=== PATIENT | female | born 1990 | race Two or more races ===

== ENCOUNTER 2018-02-11 09:26 | Emergency (ER) | payer OTHER ==
[2018-02-11 09:31] VITALS: BP 121/74; PULSE 82; TEMP 98.7; BMI 22.2
--- NOTE | 2018-02-11 09:50 | PDOC ---
History of Present Illness - General Chief Complaint: Toothache Stated Complaint: SWOLLEN FACE/FEVER Time Seen by Provider: 02/11/18 09:40 History Source: Patient Exam Limitations: No Limitations - History of Present Illness Initial Comments: 02/11/18 09:50 27 yr female with 3 days right lower jaw pain and sore throat, dental pain. pt has no fever no diff swallowing. no PMHX Severity: mild Past History - Past Medical History Allergies/Adverse Reactions: Allergies Allergy/AdvReac Type Severity Reaction Status Date / Time No Known Allergies Allergy Verified 02/11/18 09:31 Home Medications: Ambulatory Orders Amoxicillin - [Amoxicillin 875mg Tablet -] 875 mg PO BID #14 tab 02/11/18 Ibuprofen 800 mg PO TID PRN #21 tablet 02/11/18 COPD: No - Suicide/Smoking/Psychosocial Hx Smoking History: Never smoked Review of Systems - Review of Systems Able to Perform ROS?: Yes Is the patient limited Bengali proficient: No Constitutional: No: Symptoms Reported HEENTM: Yes: Symptoms Reported *Physical Exam - Vital Signs Last Vital Signs Temp Pulse Resp BP Pulse Ox 98.7 F 82 18 121/74 99 02/11/18 09:29 02/11/18 09:29 02/11/18 09:29 02/11/18 09:29 02/11/18 09:29 - Physical Exam General Appearance: Yes: Nourished, Appropriately Dressed HEENT: positive: EOMI, JAMILA, Pharyngeal Erythema, Other (right lower gum line with possible impacted molar , no abscess ) Neck: positive: Supple Respiratory/Chest: positive: Lungs Clear, Normal Breath Sounds Extremity: positive: Normal Capillary Refill, Normal Inspection, Normal Range of Motion Integumentary: positive: Normal Color, Dry, Warm Neurologic: positive: Fully Oriented, Alert, Normal Mood/Affect, Normal Response , Motor Strength 5/5 Medical Decision Making - Medical Decision Making 02/11/18 09:55 cc: possible impacted molar right lower jaw no abscess, TTP will place on amoxicillin and ibuprofen pt has dentist apt tomorrow *DC/Admit/Observation/Transfer Diagnosis at time of Disposition: Toothache - Discharge Dispostion Disposition: HOME Condition at time of disposition: Fair - Prescriptions Prescriptions: Amoxicillin - [Amoxicillin 875mg Tablet -] 875 mg PO BID #14 tab Ibuprofen 800 mg PO TID PRN #21 tablet PRN Reason: Pain - Referrals - Patient Instructions Printed Discharge Instructions: DI for Dental Pain Additional Instructions: follow with the dentist tomorrow as planned gargle with warm salt water 4-5 times a day take the Amoxicillin as directed take ibuprofen 800mg every 8hrs for pain you can also take tylenol 650mg every 4-6hrs for pain or fever room temperature fluids and foods - Post Discharge Activity
== END 2018-02-11 09:56 | disposition home or self-care (01) ==
LOC: JERFT 09:26
DX: K08.89 Other specified disorders of teeth and supporting structures (principal)
CPT/HCPCS: 99281-25

== ENCOUNTER 2020-05-22 16:47 | Inpatient (IN) | payer OTHER ==
[2020-05-22 17:09] VITALS: BMI 24.2
[2020-05-22] MEDS ORDERED: SODIUM CHLORIDE 0.9% 500 ML INFUS.BAG IV ONE (17:55)
[2020-05-22] MEDS ORDERED: ACETAMINOPHEN 1000 MG/100 ML BAG IVPB ONE (17:56)
[2020-05-22] MEDS ORDERED: ACETAMINOPHEN INJECTION 100 ML IVPB ONE ×2 (18:18→20:44)
[2020-05-22 19:18] LABS: BASO % 0.1 % (0-2.0); HEMATOCRIT 37.1 % (32.4-45.2); HEMOGLOBIN 12.5 GM/dL (10.7-15.3); LYMPH % 5.7 % (8-40); MCH 29.3 pg (25.7-33.7); MCHC 33.8 g/dl (32.0-36.0); MEAN CELL VOLUME 86.8 fl (80-96); MEAN PLT VOLUME 9.6 fl (7.5-11.1); MONO % 2.9 % (3.8-10.2); NEUT % 91.3 % (42.8-82.8); PLATELET COUNT 185 K/MM3 (134-434); RBC 4.27 M/mm3 (3.60-5.2); RDW 12.8 % (11.6-15.6); WHITE BLOOD COUNT 12.2 K/mm3 (4.0-10.0)
[2020-05-22] MEDS ORDERED: ONDANSETRON 4 MG/2 ML VIAL IVPUSH ONE (19:26)
[2020-05-22 19:41] LABS: CALCIUM 8.6 mg/dL (8.5-10.1)
[2020-05-22 19:42] LABS: ALBUMIN 3.6 g/dl (3.4-5.0); BLOOD UREA NITROGEN 10.1 mg/dL (7-18)
[2020-05-22 19:45] LABS: CREATININE 0.6 mg/dL (0.55-1.3)
[2020-05-22 19:47] LABS: BILIRUBIN,TOTAL 0.4 mg/dL (0.2-1); TOT PROT 7.5 g/dl (6.4-8.2)
[2020-05-22] MEDS ORDERED: POTASSIUM CHLORIDE TABS 20 MEQ TABLET.ER (FP) PO ONE ×2 (19:47→20:43)
[2020-05-22] MEDS ORDERED: FAMOTIDINE 20 MG/50 ML IVPB 20 MG/50 ML MG IVPB ONE (19:58)
[2020-05-22] MEDS ORDERED: LACTATED RINGERS SOLUTION 1000 ML INFUS.BAG IV ONE (19:59)
[2020-05-22 20:11] LABS: PH,URINE 6.5 (5.0-8.0); URINE APPEARANCE CLOUDY; URINE BILIRUBIN NEGATIVE (NEGATIVE); URINE COLOR YELLOW; URINE GLUCOSE (UA) NEGATIVE (NEGATIVE); URINE KETONE NEGATIVE (NEGATIVE); URINE LEUK ESTERASE NEGATIVE (NEGATIVE); URINE NITRITE NEGATIVE (NEGATIVE); URINE PROTEIN NEGATIVE (NEGATIVE); URINE UROBILINOGEN 0.2 mg/dL (0.2-1.0)
[2020-05-22] MEDS ORDERED: FAMOTIDINE 20 MG TABLET ONE (20:43)
[2020-05-22] MEDS ORDERED: ONDANSETRON 4 MG/2 ML VIAL ONE (20:44)
[2020-05-22 21:28] LABS: ANISOCYTOSIS 0; MACROCYTOSIS 0; PLATELET ESTIMATE NORMAL
[2020-05-22] MEDS ORDERED: PIPERACILLIN/TAZOB 4.5 GM 4.5 GM in DEXTROSE 5%-WATER 100 ML IVPB ONE (22:43)
[2020-05-22] MEDS ORDERED: PIPERACILLIN/TAZOB 4.5 GM 4.5 GM/100 ML BAG IVPB ONE (22:51)
[2020-05-23] MEDS ORDERED: ACETAMINOPHEN 325 MG TABLET (FP) PO PRN (00:40)
[2020-05-23] MEDS: SODIUM CHLORIDE 1,000 ML with POTASSIUM CHLORIDE 20 MEQ IV SCH (01:17)
[2020-05-23] MEDS ORDERED: ACETAMINOPHEN 325 MG TABLET (FP) ONE (06:28)
[2020-05-23 07:07] LABS: BASO % 0.2 % (0-2.0); HEMATOCRIT 35.3 % (32.4-45.2); HEMOGLOBIN 12.1 GM/dL (10.7-15.3); LYMPH % 8.9 % (8-40); MCH 29.9 pg (25.7-33.7); MCHC 34.1 g/dl (32.0-36.0); MEAN CELL VOLUME 87.7 fl (80-96); MEAN PLT VOLUME 9.5 fl (7.5-11.1); MONO % 3.3 % (3.8-10.2); NEUT % 87.6 % (42.8-82.8); PLATELET COUNT 168 K/MM3 (134-434); RBC 4.03 M/mm3 (3.60-5.2); RDW 13.4 % (11.6-15.6); WHITE BLOOD COUNT 8.3 K/mm3 (4.0-10.0)
[2020-05-23 07:25] LABS: ALBUMIN 3.3 g/dl (3.4-5.0); BLOOD UREA NITROGEN 8.1 mg/dL (7-18)
[2020-05-23 07:27] LABS: CREATININE 0.6 mg/dL (0.55-1.3)
[2020-05-23 07:28] LABS: BILIRUBIN,TOTAL 0.4 mg/dL (0.2-1)
[2020-05-23 07:29] LABS: TOT PROT 6.9 g/dl (6.4-8.2)
[2020-05-23] MEDS ORDERED: ENOXAPARIN NA (PORCINE) 40 MG/0.4 ML DISP.SYRIN SQ ONE (07:44)
[2020-05-23] MEDS ORDERED: PIPERACILLIN/TAZOB 3.375 GM 3.375 GM/50 ML BAG IVPB ONE (08:59)
[2020-05-23] MEDS: PIPERACILLIN/TAZOB 3.375 GM 3.375 GM in DEXTROSE 5%-WATER - 50 ML IVPB SCH ×2 (09:10→10:20)
[2020-05-23] MEDS: ENOXAPARIN NA (PORCINE) 40 MG/0.4 ML DISP.SYRIN SQ SCH (09:22)
[2020-05-23] MEDS ORDERED: ACETAMINOPHEN 1000 MG/100 ML BAG IVPB PRN (16:25)
[2020-05-23] MEDS ORDERED: ONDANSETRON 4 MG/2 ML VIAL ONE (22:08)
[2020-05-24] MEDS: SODIUM CHLORIDE 1,000 ML with POTASSIUM CHLORIDE 20 MEQ IV SCH ×2 (02:11→10:52)
[2020-05-24 08:10] LABS: HEMATOCRIT 31.9 % (32.4-45.2); HEMOGLOBIN 10.9 GM/dL (10.7-15.3); MCH 29.8 pg (25.7-33.7); MCHC 34.1 g/dl (32.0-36.0); MEAN CELL VOLUME 87.4 fl (80-96); MEAN PLT VOLUME 9.6 fl (7.5-11.1); PLATELET COUNT 148 K/MM3 (134-434); RBC 3.65 M/mm3 (3.60-5.2); WHITE BLOOD COUNT 5.7 K/mm3 (4.0-10.0)
[2020-05-24 08:24] LABS: EPI CELLS >36 /uL (0-25.1); HYALINE CASTS 4 /uL (0-3.1); PH,URINE 5.5 (5.0-8.0); URINE APPEARANCE TURBID; URINE BACTERIA 567 /uL (0-1359); URINE BILIRUBIN NEGATIVE (NEGATIVE); URINE COLOR DK YELLOW; URINE GLUCOSE (UA) NEGATIVE (NEGATIVE); URINE KETONE 4+ (NEGATIVE); URINE LEUK ESTERASE NEGATIVE (NEGATIVE); URINE NITRITE NEGATIVE (NEGATIVE); URINE PROTEIN 1+ (NEGATIVE); URINE RBC 21 /uL (0-23.9); URINE UROBILINOGEN 0.2 mg/dL (0.2-1.0); URINE WBC 14 /uL (0-25.8)
[2020-05-24 08:29] LABS: ALBUMIN 2.8 g/dl (3.4-5.0); BLOOD UREA NITROGEN 7.4 mg/dL (7-18); CALCIUM 7.9 mg/dL (8.5-10.1)
[2020-05-24 08:32] LABS: CREATININE 0.4 mg/dL (0.55-1.3)
[2020-05-24 08:34] LABS: BILIRUBIN,TOTAL 0.2 mg/dL (0.2-1)
[2020-05-24] MEDS ORDERED: POTASSIUM CHLORIDE TABS 20 MEQ TABLET.ER (FP) PO ONE (08:44)
[2020-05-24] MEDS: ENOXAPARIN NA (PORCINE) 40 MG/0.4 ML DISP.SYRIN SQ SCH (09:31)
[2020-05-24] MEDS ORDERED: CEFTRIAXONE 1 GM in DEXTROSE 5%-WATER - 50 ML IVPB SCH (10:00)
[2020-05-24] MEDS ORDERED: SODIUM PHOSPHATE - 20 MM in SODIUM CHLORIDE 250 ML IVPB ONE (12:15)
[2020-05-24 19:02] LABS: EPI CELLS >36 /uL (0-25.1); HYALINE CASTS 7 /uL (0-3.1); PH,URINE 5.5 (5.0-8.0); URINE APPEARANCE CLEAR; URINE BACTERIA 967 /uL (0-1359); URINE BILIRUBIN NEGATIVE (NEGATIVE); URINE COLOR YELLOW; URINE GLUCOSE (UA) NEGATIVE (NEGATIVE); URINE KETONE 3+ (NEGATIVE); URINE LEUK ESTERASE 1+ (NEGATIVE); URINE NITRITE NEGATIVE (NEGATIVE); URINE PROTEIN TRACE (NEGATIVE); URINE RBC 19 /uL (0-23.9); URINE UROBILINOGEN 0.2 mg/dL (0.2-1.0); URINE WBC 31 /uL (0-25.8)
[2020-05-25] MEDS: SODIUM CHLORIDE 1,000 ML with POTASSIUM CHLORIDE 20 MEQ IV SCH (08:30)
[2020-05-25] MEDS: ENOXAPARIN NA (PORCINE) 40 MG/0.4 ML DISP.SYRIN SQ SCH (09:33)
[2020-05-25 09:51] LABS: HEMATOCRIT 32.2 % (32.4-45.2); HEMOGLOBIN 10.9 GM/dL (10.7-15.3); MCH 29.5 pg (25.7-33.7); MEAN CELL VOLUME 86.6 fl (80-96); MEAN PLT VOLUME 9.9 fl (7.5-11.1); PLATELET COUNT 187 K/MM3 (134-434); RBC 3.72 M/mm3 (3.60-5.2); RDW 13.2 % (11.6-15.6); WHITE BLOOD COUNT 3.8 K/mm3 (4.0-10.0)
[2020-05-25 10:25] LABS: CALCIUM 7.8 mg/dL (8.5-10.1)
[2020-05-25 10:29] LABS: CREATININE 0.4 mg/dL (0.55-1.3); PHOSPHOROUS 2.1 mg/dL (2.5-4.9)
[2020-05-25] MEDS ORDERED: POTASSIUM CHLORIDE TABS 20 MEQ TABLET.ER (FP) PO ONE (10:52)
[2020-05-25] MEDS ORDERED: POTASSIUM PHOSPHATE 15 MM in SODIUM CHLORIDE 250 ML IVPB ONE (11:21)
[2020-05-25] MEDS: KCL 10 MEQ IVPB 10 MEQ/100 ML INFUS.BAG IVPB SCH ×3 (13:18→17:00)
[2020-05-25 15:46] LABS: BLOOD UREA NITROGEN 3.6 mg/dL (7-18); CALCIUM 8.4 mg/dL (8.5-10.1); MAGNESIUM 2.1 mg/dL (1.8-2.4)
[2020-05-25 15:50] LABS: CREATININE 0.4 mg/dL (0.55-1.3); PHOSPHOROUS 1.9 mg/dL (2.5-4.9)
[2020-05-25 16:56] VITALS: BP 107/67; PULSE 76; TEMP 98.5
== END 2020-05-25 19:10 | disposition home or self-care (01) | DRG 245 ==
LOC: JER 16:47 → JERBED 23:11 → J6WEST-2 05-23 21:04
PROVIDERS: ADMIT Hospitalist; ATTEND Internal Medicine
DX: K51.019 Ulcerative (chronic) pancolitis with unspecified complications (principal); R00.0 Tachycardia, unspecified; E87.6 Hypokalemia; D72.829 Elevated white blood cell count, unspecified; N39.0 Urinary tract infection, site not specified; A09 Infectious gastroenteritis and colitis, unspecified; R11.2 Nausea with vomiting, unspecified; N32.89 Other specified disorders of bladder
CPT/HCPCS: 36415; 71046-TC-FY; 74177-TC; 80048; 80053; 81003; 83605; 83690; 83735; 83993; 84100; 84703; 85025; 85027; 85651; 86140; 87040; 87045; 87046; 87086; 87186; 87205; 87324; 87449; 87798; 93005; 93010; 99285-25; C9803; J0131; Q9967; U0003

== ENCOUNTER 2022-10-18 01:24 | Emergency (ER) | payer OTHER ==
[2022-10-18 01:36] VITALS: BP 120/73; PULSE 73; RESP 18; TEMP 97.8; BMI 26.2
[2022-10-18] MEDS ORDERED: METOCLOPRAMIDE HCL INJECTION 10 MG/2 ML VIAL IVPUSH ONE (02:28)
[2022-10-18] MEDS ORDERED: ACETAMINOPHEN 1000 MG/100 ML BAG IVPB ONE (02:28)
[2022-10-18] MEDS ORDERED: SODIUM CHLORIDE 0.9% 500 ML INFUS.BAG IV ONE (02:52)
[2022-10-18] MEDS ORDERED: ACETAMINOPHEN INJECTION 100 ML IVPB ONE (02:55)
[2022-10-18] MEDS ORDERED: METOCLOPRAMIDE HCL INJECTION 10 MG/2 ML VIAL ONE (02:55)
[2022-10-18 03:03] LABS: BASO % 0.6 % (0-2.0); EOS % 2.5 % (0-4.5); HEMATOCRIT 37.4 % (32.4-45.2); HEMOGLOBIN 12.6 GM/dL (10.7-15.3); LYMPH % 35.7 % (8-40); MCH 28.8 pg (25.7-33.7); MCHC 33.8 g/dl (32.0-36.0); MEAN CELL VOLUME 85.2 fl (80-96); MEAN PLT VOLUME 9.1 fl (7.5-11.1); MONO % 7.7 % (3.8-10.2); NEUT % 53.5 % (42.8-82.8); PLATELET COUNT 240 10^3/uL (134-434); RBC 4.39 M/mm3 (3.60-5.2); RDW 12.9 % (11.6-15.6); WHITE BLOOD COUNT 7.2 K/mm3 (4.0-10.0)
[2022-10-18 03:21] LABS: POTASSIUM 4.5 mmol/L (3.5-5.1)
[2022-10-18 03:23] LABS: CALCIUM 9.5 mg/dL (8.5-10.1)
[2022-10-18 03:24] LABS: ALBUMIN 3.8 g/dl (3.4-5.0); MAGNESIUM 2.1 mg/dL (1.8-2.4)
[2022-10-18 03:27] LABS: CREATININE 0.5 mg/dL (0.55-1.3); PHOSPHOROUS 4.4 mg/dL (2.5-4.9)
[2022-10-18 03:29] LABS: BILIRUBIN,TOTAL 0.2 mg/dL (0.2-1); TOT PROT 7.4 g/dl (6.4-8.2)
[2022-10-18 05:50] LABS: URINE APPEARANCE CLEAR; URINE BILIRUBIN NEGATIVE (NEGATIVE); URINE COLOR YELLOW; URINE GLUCOSE (UA) NEGATIVE (NEGATIVE); URINE KETONE NEGATIVE (NEGATIVE); URINE LEUK ESTERASE NEGATIVE (NEGATIVE); URINE NITRITE NEGATIVE (NEGATIVE); URINE PROTEIN NEGATIVE (NEGATIVE); URINE UROBILINOGEN 0.2 mg/dL (0.2-1.0)
== END 2022-10-18 06:43 | disposition home or self-care (01) ==
LOC: JER 01:24
PROC: 3E033NZ Introduction of Analgesics, Hypnotics, Sedatives into Peripheral Vein, Percutaneous Approach (ICD-10-PCS; principal; 2022-10-18)
PROC: 3E033GC Introduction of Other Therapeutic Substance into Peripheral Vein, Percutaneous Approach (ICD-10-PCS; 2022-10-18)
DX: R51.9 Headache, unspecified (principal); R11.0 Nausea; H53.149 Visual discomfort, unspecified
CPT/HCPCS: 36415; 80053; 81003; 83735; 84100; 84703; 85025; 87086; 99284-25

== ENCOUNTER 2023-10-08 05:27 | Inpatient (IN) | payer OTHER ==
[2023-10-08] MEDS ORDERED: ACETAMINOPHEN INJECTION 100 ML IVPB ONE (05:51)
[2023-10-08] MEDS: SODIUM CHLORIDE 0.9% 500 ML INFUS.BAG IV ONE (06:13)
[2023-10-08] MEDS: ACETAMINOPHEN 1000 MG/100 ML BAG IVPB ONE (06:14)
[2023-10-08 06:26] LABS: INR 1.06 (0.83-1.09); PROTHROMBIN TIME (PATIENT) 12.2 SEC (9.7-13.0)
[2023-10-08 06:29] LABS: ACTIVATED PTT 34.7 SECONDS (25.2-36.5)
[2023-10-08 06:32] LABS: BASO % 0.2 % (0-2.0); EOS % 0.4 % (0-4.5); HEMATOCRIT 34.6 % (32.4-45.2); HEMOGLOBIN 11.8 GM/dL (10.7-15.3); LYMPH % 9.4 % (8-40); MCH 29.9 pg (25.7-33.7); MCHC 34.3 g/dl (32.0-36.0); MEAN CELL VOLUME 87.2 fl (80-96); MEAN PLT VOLUME 9.4 fl (7.5-11.1); MONO % 6.1 % (3.8-10.2); NEUT % 83.9 % (42.8-82.8); PLATELET COUNT 195 10^3/uL (134-434); RBC 3.96 M/mm3 (3.60-5.2); WHITE BLOOD COUNT 14.2 K/mm3 (4.0-10.0)
[2023-10-08] MEDS ORDERED: morphine SULFATE 4 MG/ML VIAL ONE (06:36)
[2023-10-08] MEDS: morphine CARPU-JECT 4 MG/1 ML DISP.SYRIN IVPUSH ONE (06:38)
[2023-10-08 06:51] LABS: POTASSIUM 3.9 mmol/L (3.5-5.1)
[2023-10-08 06:53] LABS: CALCIUM 8.6 mg/dL (8.5-10.1)
[2023-10-08 06:54] LABS: ALBUMIN 3.6 g/dl (3.4-5.0); BLOOD UREA NITROGEN 11.2 mg/dL (7-18)
[2023-10-08 06:57] LABS: CREATININE 0.5 mg/dL (0.55-1.3)
[2023-10-08 06:58] LABS: BILIRUBIN,TOTAL 0.5 mg/dL (0.2-1); TOT PROT 7.3 g/dl (6.4-8.2)
[2023-10-08 07:04] LABS: URINE APPEARANCE CLEAR; URINE BILIRUBIN NEGATIVE (NEGATIVE); URINE COLOR YELLOW; URINE GLUCOSE (UA) NEGATIVE (NEGATIVE); URINE KETONE NEGATIVE (NEGATIVE); URINE LEUK ESTERASE NEGATIVE (NEGATIVE); URINE NITRITE NEGATIVE (NEGATIVE); URINE PROTEIN NEGATIVE (NEGATIVE); URINE UROBILINOGEN 0.2 mg/dL (0.2-1.0)
[2023-10-08] MEDS ORDERED: PIPERACILLIN/TAZOB 3.375 GM 3.375 GM/50 ML BAG IVPB ONE (07:42)
[2023-10-08] MEDS: PIPERACILLIN/TAZOB 3.375 GM 3.375 GM in DEXTROSE 5%-WATER - 50 ML IVPB ONE (07:52)
[2023-10-08] MEDS ORDERED: ACETAMINOPHEN 1000 MG/100 ML BAG IVPB PRN ×2 (12:04→15:41)
[2023-10-08] MEDS ORDERED: ONDANSETRON 4 MG/2 ML VIAL IVPUSH PRN ×2 (12:05→15:41)
[2023-10-08] MEDS: LACTATED RINGERS SOLUTION 1,000 ML/1,000 ML INFUS.BAG IV SCH ×2 (12:36→19:03)
[2023-10-08] MEDS ORDERED: MIDAZOLAM HCL 2 MG/2 ML SINGLE DOSE VIAL ONE (14:15)
[2023-10-08] MEDS ORDERED: KETOROLAC TROMETHAMINE 30 MG/1 ML VIAL ONE (14:15)
[2023-10-08] MEDS ORDERED: LIDOCAINE HCL/PF 2% SDV 5ML VIAL ONE (14:15)
[2023-10-08] MEDS ORDERED: FENTANYL CITRATE/PF 50 MCG/ML VIAL ONE ×4 (14:16→17:50)
[2023-10-08] MEDS ORDERED: ROCURONIUM BROMIDE 50 MG/5 ML SYRINGE ONE (14:16)
[2023-10-08] MEDS ORDERED: PROPOFOL 20 ML ONE (14:17)
[2023-10-08] MEDS ORDERED: BUPIVACAINE HCL/PF 0.25% (2.5MG/ML) 10 ML VIAL ONE (14:31)
[2023-10-08 15:36] VITALS: BMI 24.2
[2023-10-08] MEDS ORDERED: LACTATED RINGERS SOLUTION 1,000 ML/1,000 ML INFUS.BAG IV SCH (15:41)
[2023-10-08] MEDS: AMPICILLIN NA/SULBACTAM NA 3 GM in SODIUM CHLORIDE 100 ML IVPB SCH (15:43)
[2023-10-08] MEDS: BUPIVACAINE HCL/PF 2.5 MG/ML - 30 ML VIAL IJ ONE (15:46)
[2023-10-08] MEDS ORDERED: SODIUM CHLORIDE 0.9% P/F 10 ML VIAL IJ ONE (16:07)
[2023-10-08] MEDS ORDERED: HYDROmorphone HCl 2 MG/ML VIAL ONE (16:07)
[2023-10-08] MEDS ORDERED: LACTATED RINGERS SOLUTION 1,000 ML IV SCH (16:15)
[2023-10-08] MEDS ORDERED: SUGAMMADEX SODIUM 200 MG/2 ML VIAL ONE (16:40)
[2023-10-08] MEDS ORDERED: ONDANSETRON 4 MG/2 ML VIAL ONE (16:43)
[2023-10-08] MEDS: ACETAMINOPHEN 1000 MG/100 ML BAG IVPB SCH (18:45)
[2023-10-09 09:09] LABS: BASO % 0.1 % (0-2.0); HEMOGLOBIN 11.4 GM/dL (10.7-15.3); MCH 29.9 pg (25.7-33.7); MCHC 34.4 g/dl (32.0-36.0); MEAN CELL VOLUME 86.8 fl (80-96); MEAN PLT VOLUME 9.4 fl (7.5-11.1); MONO % 4.8 % (3.8-10.2); NEUT % 82.1 % (42.8-82.8); PLATELET COUNT 203 10^3/uL (134-434); RDW 13.3 % (11.6-15.6)
[2023-10-09] MEDS ORDERED: ACETAMINOPHEN 325 MG TABLET (FP) PO PRN (09:19)
[2023-10-09 09:36] LABS: POTASSIUM 3.6 mmol/L (3.5-5.1)
[2023-10-09 09:44] LABS: BLOOD UREA NITROGEN 5.7 mg/dL (7-18); CALCIUM 8.8 mg/dL (8.5-10.1)
[2023-10-09 09:48] LABS: CREATININE 0.5 mg/dL (0.55-1.3)
[2023-10-09] MEDS: AMOX TR/POT CLAV 875MG/125MG TABLETS (FP) PO ONE (11:58)
[2023-10-09 12:18] VITALS: BP 93/60; PULSE 78; RESP 18; TEMP 98.2
== END 2023-10-09 14:20 | disposition home or self-care (01) | DRG 221 ==
LOC: JER 05:27 → JERBED 11:54 → J8W 13:25
PROVIDERS: ADMIT Internal Medicine; ATTEND Nurse Practitioner Family
PROC: 8E0W0CZ Robotic Assisted Procedure of Trunk Region, Open Approach (ICD-10-PCS; 2023-10-08)
PROC: 0DBH0ZZ Excision of Cecum, Open Approach (ICD-10-PCS; 2023-10-08)
PROC: 0DTJ0ZZ Resection of Appendix, Open Approach (ICD-10-PCS; principal; 2023-10-08 15:00)
DX: K35.80 Unspecified acute appendicitis (principal); R10.31 Right lower quadrant pain
CPT/HCPCS: 36415; 74177-TC; 80048; 80053; 81003; 83605; 83690; 84703; 85025; 85610; 85730; 86850; 86900; 86901; 87086; 87186; 88307-TC; 93005; 93010; 94010; 94760; 99285-25; J0131; Q9967

== ENCOUNTER 2023-10-13 08:59 | Emergency (ER) | payer OTHER ==
[2023-10-13 09:05] VITALS: BMI 24.2
[2023-10-13 10:27] LABS: BASO % 0.4 % (0-2.0); EOS % 2.5 % (0-4.5); HEMATOCRIT 36.7 % (32.4-45.2); HEMOGLOBIN 12.6 GM/dL (10.7-15.3); LYMPH % 35.9 % (8-40); MCH 29.8 pg (25.7-33.7); MCHC 34.3 g/dl (32.0-36.0); MEAN CELL VOLUME 86.9 fl (80-96); MEAN PLT VOLUME 8.9 fl (7.5-11.1); MONO % 7.3 % (3.8-10.2); NEUT % 53.9 % (42.8-82.8); PLATELET COUNT 296 10^3/uL (134-434); RBC 4.22 M/mm3 (3.60-5.2); WHITE BLOOD COUNT 7.4 K/mm3 (4.0-10.0)
[2023-10-13 10:57] LABS: POTASSIUM 4.4 mmol/L (3.5-5.1)
[2023-10-13 10:59] LABS: ALBUMIN 3.7 g/dl (3.4-5.0)
[2023-10-13 11:00] LABS: BLOOD UREA NITROGEN 15.1 mg/dL (7-18)
[2023-10-13 11:02] LABS: CREATININE 0.4 mg/dL (0.55-1.3)
[2023-10-13 11:04] LABS: BILIRUBIN,TOTAL 0.2 mg/dL (0.2-1); TOT PROT 7.6 g/dl (6.4-8.2)
[2023-10-13 11:44] VITALS: BP 100/61; PULSE 79; RESP 20; TEMP 98.7
== END 2023-10-13 11:49 | disposition home or self-care (01) ==
LOC: JER 08:59
DX: T81.41XA Infection following a procedure, superficial incisional surgical site, initial encounter (principal); R10.31 Right lower quadrant pain; G89.18 Other acute postprocedural pain
CPT/HCPCS: 36415; 80053; 84703; 85025; 99283-25